=== PATIENT | female | born 1955 | race Caucasian/White ===

== ENCOUNTER → 2016-10-21 | Day surgery (SDC) | payer OTHER ==
[~2016-10-21] MED LIST: ACET325T9 PO; ASCO100065 PO; BIOT800T PO; BISA-42 PO; CELE200C PO; CETI10TA16 PO; CHOL500016 PO; CYCL10TA2 PO; CYCL5TAB PO; FERR-26 PO; HYDR-2758 PO; HYDROmorphone 2 MG/ML VIAL IV PRN; IBUP-1027 PO; IV RINGERS,LACTATED 1000ML 1,000 ML IV SCH; LEVO175T5 PO; LIDOCAINE 1% 1 ML SYRINGE. ID PRN; LIDOCAINE 2% PF Vial for OR 5 ML VIAL. ONE; LORA10TA3 PO; MORPHINE SULFATE 2 MG/ML DISP.SYRIN. IV PRN; MULT-212 PO; MULT1TAB52 PO; OLME1TAB21 PO; OLME1TAB25 PO; ONDANSETRON PF 4 MG/2 ML VIAL. IV PRN; OXYC-327 PO; PROCHLORPERAZINE 10 MG/2 ML VIAL. IV PRN; PROPOFOL 60 ML IV ONE; SIMV20TA3 PO; TRAM50TA PO; WARF4TAB7 PO; [UNRECOGNIZED DRUG - CODE] PO; fentaNYL PF VIAL 100 MCG/2 ML VIAL IV PRN
[2016-10-21 08:53] VITALS: BP 133/78
--- NOTE | 2016-10-24 11:05 | PATHOLOGY ---
PATHOLOGY REPORT * * * * * * * * FINAL DIAGNOSIS: Colonic mucosa "random colon biopsy": - Focal mildly increased intraepithelial lymphocytes consistent with early microscopic colitis. - See comment. COMMENT: Suggest clinical and endoscopy correlation. (NICK:dimitrios; d/t: 10/24/2016) REPORT ELECTRONICALLY SIGNED BY: Lars Sarabia M.D. DATE/TIME: 10/24/2016 11:05 * * * * * * * * GROSS PATHOLOGY: Received in formalin labeled "Wendy Yee, random colon biopsies for diarrhea," are multiple segments of servin soft tissue measuring from less than 0.1 up to 0.4 cm in maximum dimension. The specimen is submitted entirely in cassette A1. (JPM; 10/21/16) INITIAL CPT CODE(S): A; 71454 Professional services performed by [facility] [place] [address] Technical services performed by [facility] at [address] [place] [address]. SPECIMEN(S) RECEIVED: A.Random colon biopsies for diarrhea CLINICAL HISTORY: Weight loss, diarrhea PATIENT: WENDY YEE /AGE: 812/17/1955 (Age: 60) PATIENT #: [id number] ALT CASE #: SPECIMEN COLLECTION DATE: 10/21/2016 SPECIMEN RECEIVED DATE: 10/21/2016 [facility] - [address] [place] [address] - PHONE: [phone] * * * END OF REPORT * * *
== END | disposition home or self-care (01) ==
LOC: ENDOS 06:55
PROVIDERS: ATTEND Internal Medicine Gastroenterology
DX: K64.0 First degree hemorrhoids (principal); K57.30 Diverticulosis of large intestine without perforation or abscess without bleeding; K29.40 Chronic atrophic gastritis without bleeding; M19.90 Unspecified osteoarthritis, unspecified site; K80.20 Calculus of gallbladder without cholecystitis without obstruction; E03.9 Hypothyroidism, unspecified; I10 Essential (primary) hypertension; E78.00 Pure hypercholesterolemia, unspecified; Z82.49 Family history of ischemic heart disease and other diseases of the circulatory system; Z72.89 Other problems related to lifestyle; Z90.49 Acquired absence of other specified parts of digestive tract; Z87.01 Personal history of pneumonia (recurrent); Z87.39 Personal history of other diseases of the musculoskeletal system and connective tissue; Z87.440 Personal history of urinary (tract) infections; Z88.8 Allergy status to other drugs, medicaments and biological substances; Z91.048 Other nonmedicinal substance allergy status
CPT/HCPCS: 36415; 43235; 45380; 82607; 88305; J2704